=== PATIENT | male | born 1955 | race Caucasian/White ===

== ENCOUNTER 2017-08-14 21:12 | Emergency (ER) | payer MEDICARE ==
[~2017-08-14] VITALS: Ht 185.4 cm; Wt 117.0 kg
[~2017-08-14 21:12] MED LIST: ATENOLOL; CRESTOR; CRESTOR10 MG PO; FENTANYL PATCH; METFORMIN; OMEPRAZOLE; OMEPRAZOLE40 MG PO; SEROQUEL100 MG PO; SOMA; TESTOSTERO200 MG/1 M IN; TESTOSTERONE IM; TIZANIDINE HCL4 MG PO; Z.0.BENICAR20 MG; Z.0.CYMBALTA60 MG; Z.0.OXYCODONE HCL30; [UNRECOGNIZED DRUG - OTHER]
[2017-08-14] MEDS ORDERED: IBUPROFEN 600 MG TAB PO STA (21:29)
[2017-08-14] MEDS ORDERED: SODIUM CHLORIDE 0.9% 1000ML 1,000 ML IV STA (21:45)
--- NOTE | 2017-08-14 22:29 | Diagnostic Imaging Report ---
EXAM: CHEST SINGLE (NOT PORTABLE), AP 1 view ORDER DATE: 08/14/2017 9:29 PM Time stamp on exam: 2213 hours INDICATION: Cough, flulike symptoms COMPARISON: None FINDINGS: LINES/TUBES: None LUNGS: No consolidations or edema. Mild bibasilar atelectasis. PLEURA: No effusions or pneumothorax. HEART AND MEDIASTINUM: Normal size and contour. BONES AND SOFT TISSUES: No acute findings. IMPRESSION: Mild bibasilar atelectasis. Signed by: Dr. Jocelyne Feldman M.D. on 08/14/2017 10:25 PM
[2017-08-14 22:38] LABS: BASOPHILS % 0.7 % (0.0-1.0); EOSINOPHILS # (AUTO) 0.1 (0.0-0.4); EOSINOPHILS % 2.9 % (0.0-6.0); HEMATOCRIT 39.1 % (38.2-49.6); HEMOGLOBIN 13.4 g/dL (14.0-18.0); LYMPHOCYTES # (AUTO) 1.3 (1.0-3.2); LYMPHOCYTES % 29.6 % (18.0-39.1); MEAN CORPUSCULAR HGB CONC 34.3 g/dL (31-35); MEAN CORPUSCULAR VOLUME 84.6 fL (81-99); MONOCYTES # (AUTO) 0.5 (0.2-0.8); MONOCYTES % 11.9 % (4.4-11.3); NEUTROPHILS # (AUTO) 2.4 (2.1-6.9); NEUTROPHILS % 53.1 % (38.7-80.0); PLATELET COUNT 160 x10e3/uL (140-360); RED BLOOD COUNT 4.62 x10e6/uL (4.3-5.7); RED CELL DISTRIBUTION WIDTH 13.2 % (11.7-14.4)
[2017-08-14 23:01] LABS: ALBUMIN/GLOBULIN RATIO 1.2 (0.8-2.0); ANION GAP 16.3 mmol/L (8-16); CALCIUM 8.5 mg/dL (8.4-10.2); CREATININE, SERUM 1.72 mg/dL (0.72-1.25); POTASSIUM 3.3 mmol/L (3.5-5.1)
[2017-08-14 23:10] LABS: CREATINE KINASE MB 2.1 ng/mL (0.00-5.00)
[2017-08-15 01:15] LABS: CLARITY,URINE CLOUDY (CLEAR); COLOR,URINE YELLOW (YELLOW); KETONES,URINE NEGATIVE (NEGATIVE); LEUKOCYTE ESTERASE ,URINE NEGATIVE (NEGATIVE); NITRITE,URINE NEGATIVE (NEGATIVE); PROTEIN,URINE DIPSTICK NEGATIVE (NEGATIVE); URINE UROBILINOGEN 0.2 mg/dL (0.2 - 1)
[2017-08-15 01:17] LABS: BILIRUBIN,URINE 1+ (NEGATIVE)
[2017-08-15 01:28] LABS: BACTERIA,URINE FEW /HPF; RBC,URINE 0-5 /HPF (0-5); WBC,URINE (MAN) 0-5 /HPF (0-5)
[2017-08-15 01:29] LABS: AMORPHOUS SEDIMENT,URINE MANY (FEW)
[2017-08-15] MEDS ORDERED: HYOSCYAMINE 0.125 MG TAB PO SCH (09:00)
== END 2017-08-15 02:43 | disposition home or self-care (01) ==
LOC: ER 21:12
DX: R19.7 Diarrhea, unspecified (principal); R11.0 Nausea; R10.84 Generalized abdominal pain
CPT/HCPCS: 36415; 71010; 80053; 81001; 82550; 82553; 84484; 85025; 87086; 87400; 99283; J7030; 71045

== ENCOUNTER 2018-05-30 14:43 | Emergency (ER) | payer MEDICARE, OTHER ==
[~2018-05-30] VITALS: Ht 185.4 cm; Wt 111.1 kg
--- OUTSIDE RECORDS SUMMARY | 2018-05-30 14:45 | XMS REPORT ---
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 Allergies, Adverse Reactions, Alerts Allergy Name Allergy Type Status Severity Reaction(s) Onset Date Inactive Date Treating Clinician Comments No Known Allergies DA Active U 2018-05-29 00:00:00 Medications This patient has no known medications. Results Test Description Test Time Test Comments Text Results Atomic Results Result Comments CHEST SINGLE (NOT PORTABLE) [place] [address] Patient Name: JOHANA DIAMOND MR #: [id number] : 1955 Age/Sex: 62/M Req #: [id number] Adm Physician: Ordered by: SUE LIMON MOTOR MAN Report #: [id number] Location: ER Room/Bed: Procedure: [id number] DX/CHEST SINGLE (NOT PORTABLE) Exam Date: 08/14/17 Exam Time: 2199 REPORT STATUS: Signed EXAM: CHEST SINGLE (NOT PORTABLE), AP 1 view ORDER DATE: 08/14/2017 9:29 PM Time stamp on exam: 2213 hours INDICATION: Cough, flulike symptoms COMPARISON: None FINDINGS: LINES/TUBES: None LUNGS: No consolidations or edema. Mild bibasilar atelectasis. PLEURA: No effusions or pneumothorax. HEART AND MEDIASTINUM: Normal size and contour. BONES AND SOFT TISSUES: No acute findings. IMPRESSION: Mild bibasilar atelectasis. Signed by: Dr. Cari Feldman M.D. on 08/14/2017 10:25 PM Dictated By: CARI FELDMAN MD 24 Transcribed By: KLARISSA on 08/14/172224 COPY TO: SUE LIMON NP
[2018-05-30] MEDS ORDERED: ADENOSINE 6MG/2ML 5 ML ONE (14:52)
[2018-05-30] MEDS ORDERED: SODIUM CHLORIDE 0.9% 1000ML 1,000 ML ONE (14:53)
[2018-05-30] MEDS ORDERED: METOPROLOL TARTRATE INJ 1 MG/ML VIAL ONE (14:57)
[2018-05-30] MEDS ORDERED: SODIUM CHLORIDE 0.9% 1000ML 1,000 ML IV STA (15:01)
[2018-05-30] MEDS ORDERED: METOPROLOL TARTRATE INJ 1 MG/ML VIAL IV ONE ×2 (15:15→16:00)
[2018-05-30] MEDS ORDERED: METOPROLOL TARTRATE INJ 1 MG/ML VIAL IV NR ×3 (15:15→16:00)
[2018-05-30] MEDS ORDERED: ADENOSINE 6 MG/2 ML VIAL IV ONE ×2 (15:15)
[2018-05-30 15:29] LABS: BASOPHILS # (AUTO) 0.1 (0.0-0.1); BASOPHILS % 0.7 % (0.0-1.0); EOSINOPHILS # (AUTO) 0.1 (0.0-0.4); EOSINOPHILS % 0.5 % (0.0-6.0); HEMOGLOBIN 14.7 g/dL (14.0-18.0); LYMPHOCYTES # (AUTO) 2.4 (1.0-3.2); LYMPHOCYTES % 23.8 % (18.0-39.1); MEAN CORPUSCULAR HEMOGLOBIN 27.3 pg (28-32); MEAN CORPUSCULAR HGB CONC 32.7 g/dL (31-35); MEAN CORPUSCULAR VOLUME 83.5 fL (81-99); MONOCYTES # (AUTO) 0.9 (0.2-0.8); MONOCYTES % 8.6 % (4.4-11.3); NEUTROPHILS # (AUTO) 6.7 (2.1-6.9); PLATELET COUNT 226 x10e3/uL (140-360); RED BLOOD COUNT 5.39 x10e6/uL (4.3-5.7); RED CELL DISTRIBUTION WIDTH 14.4 % (11.7-14.4)
[2018-05-30 15:47] LABS: ALBUMIN 4.4 g/dL (3.5-5.0); ALBUMIN/GLOBULIN RATIO 1.2 (0.8-2.0); ANION GAP 15.6 mmol/L (8-16); CALCIUM 10.5 mg/dL (8.4-10.2); CREATININE, SERUM 1.65 mg/dL (0.72-1.25); MAGNESIUM 1.9 MG/DL (1.3-2.1); PHOSPHORUS 3.6 MG/DL (2.3-4.7); POTASSIUM 3.6 mmol/L (3.5-5.1)
[2018-05-30 16:07] LABS: THYROID STIMULATING HORMONE 1.143 uIU/mL (0.350-4.940)
[2018-05-30] MEDS ORDERED: METOPROLOL SUCCINATE 50 MG TAB XL PO ONE (16:30)
[2018-05-30] MEDS ORDERED: TOPROL XL50 MG PO (16:35)
[2018-05-30 16:59] VITALS: BP 139/88
== END 2018-05-30 17:07 | disposition home or self-care (01) ==
LOC: ER 14:43
DX: R00.2 Palpitations (principal); I47.1 Supraventricular tachycardia
CPT/HCPCS: 36415; 80053; 83735; 84100; 84443; 84484; 85025; 93005; 99284; J0153; J7030

== ENCOUNTER 2019-05-08 14:26 | Emergency (ER) | payer MEDICARE ==
[~2019-05-08] VITALS: Ht 185.4 cm; Wt 111.1 kg
[~2019-05-08 14:26] MED LIST changes: +TOPROL XL50 MG PO
== END 2019-05-08 14:30 | disposition home or self-care (01) ==
LOC: ER 14:26
DX: M54.5 Low back pain (principal); G89.29 Other chronic pain; I10 Essential (primary) hypertension; E11.9 Type 2 diabetes mellitus without complications; K21.9 Gastro-esophageal reflux disease without esophagitis
CPT/HCPCS: 99283

== ENCOUNTER 2025-04-23 14:34 | Emergency (ER) | payer MEDICARE ==
[2025-04-23] MEDS ORDERED: CEPHALEXIN500 MG PO (19:42)
== END 2025-04-23 15:11 | disposition short-term general hospital (02) ==
LOC: FSED 14:47
DX: S99.911A Unspecified injury of right ankle, initial encounter (principal)

== ENCOUNTER 2025-04-23 17:20 | Emergency (ER) | payer MEDICARE ==
[~2025-04-23] VITALS: Ht 185.4 cm; Wt 113.4 kg
[2025-04-23 18:20] VITALS: PULSE 106; RESP 16; TEMP 98.2
[2025-04-23] MEDS: LIDOCAINE HCL 1% LOCAL INJ 20 ML VIAL INJ STA (19:32)
[2025-04-23] MEDS ORDERED: CEPHALEXIN500 MG PO (19:42)
[2025-04-23 19:48] VITALS: BP 151/83; PULSE 110; RESP 16; TEMP 98.3; O2SAT 97
== END 2025-04-23 19:59 | disposition home or self-care (01) ==
LOC: ER 17:49
DX: I83.891 Varicose veins of right lower extremity with other complications (principal); I10 Essential (primary) hypertension; E11.9 Type 2 diabetes mellitus without complications; E78.5 Hyperlipidemia, unspecified; K21.9 Gastro-esophageal reflux disease without esophagitis; M54.9 Dorsalgia, unspecified; G89.29 Other chronic pain; E78.00 Pure hypercholesterolemia, unspecified
CPT/HCPCS: 99283; J2003